=== PATIENT | female | born 1970 | race Caucasian/White ===

== ENCOUNTER 2022-07-11 08:11 | Day surgery (SDC) | payer OTHER ==
[2022-07-10 14:41] LABS: BASOPHILS % (AUTO) 0.4 % (0.0-2.0); EOSINOPHILS # (AUTO) 0.2 K/uL (0-0.4); HEMOGLOBIN 12.2 g/dL (12.0-16.0); LYMPHOCYTES # (AUTO) 2.6 K/uL (2.5-16.5); LYMPHOCYTES % (AUTO) 34.4 % (20.5-51.1); MEAN CORPUSCULAR HEMOGLOBIN 30 pg (27-31); MEAN CORPUSCULAR HGB CONC 34 g/dL (33-37); MEAN CORPUSCULAR VOLUME 88.7 fL (80-94); MONOCYTES # (AUTO) 0.5 K/uL (0.8-1.0); MONOCYTES % (AUTO) 5.9 % (1.7-9.3); NEUTROPHILS # (AUTO) 4.3 K/uL (1.8-7.7); NEUTROPHILS % (AUTO) 56.3 % (42.2-75.2); PLATELET COUNT (AUTO) 257 K/uL (140-450); RED BLOOD CELL COUNT(AUTO) 4.05 MIL/uL (4.20-5.40); WHITE BLOOD COUNT (AUTO) 7.7 K/uL (4.8-10.8)
[2022-07-10 14:53] LABS: ANION GAP 12.8 (8-16); CREATININE 0.7 mg/dL (0.6-1.3); POTASSIUM 3.8 mmol/L (3.5-5.1)
[2022-07-10 15:02] LABS: ALBUMIN 3.9 g/dL (3.4-5.0); ANION GAP 13.4 (8-16); CARBON DIOXIDE 26.3 mmol/L (21-32); CREATININE 0.7 mg/dL (0.6-1.3); POTASSIUM 3.7 mmol/L (3.5-5.1); TOTAL BILIRUBIN 0.2 mg/dL (0.0-1.0)
[~2022-07-11] VITALS: Ht 165.1 cm; Wt 70.3 kg
[2022-07-11] MEDS ORDERED: LIDOCAINE MPF 1% 20 ML ONE (08:19)
[2022-07-11] MEDS ORDERED: BUPIVACAINE-MPF 0.25% 30 ML VIAL INJ ONE (08:19)
[2022-07-11] MEDS ORDERED: PROPOFOL 200 MG/20 ML VIAL IV ONE (08:44)
[2022-07-11] MEDS ORDERED: ONDANSETRON 4 MG/2 ML VIAL ONE (08:44)
[2022-07-11] MEDS ORDERED: DEXAMETHASONE 4 MG/ML VIAL ONE (08:44)
[2022-07-11] MEDS ORDERED: KETOROLAC 30 MG/ML VIAL ONE (08:44)
[2022-07-11] MEDS ORDERED: fentaNYL citrate 0.05 MG/ML VIAL ONE (09:00)
[2022-07-11] MEDS: HYDROmorphone 1 MG/ML AMP IVP PRN ×4 (10:40→11:10)
[2022-07-11] MEDS ORDERED: ONDANSETRON 4 MG/2 ML VIAL IVP PRN (10:40)
[2022-07-11] MEDS ORDERED: HYDROmorphone PFS 2 MG/ML SYR ONE (10:46)
== END 2022-07-11 13:00 | disposition home or self-care (01) ==
LOC: MDS 08:11 → MMU 08:14 → MDS 13:00
PROVIDERS: ATTEND Podiatrist Foot & Ankle Surgery
DX: M21.612 Bunion of left foot (principal); M20.42 Other hammer toe(s) (acquired), left foot; M25.872 Other specified joint disorders, left ankle and foot; Z20.822 Contact with and (suspected) exposure to COVID-19
CPT/HCPCS: 27635; 28285; 28299; 36415; 71045; 73610; 73630; 80053; 81025; 85025; 85730; 87426; C1713; J0690; J1100; J1170; J1885; J2001; J2405; J2704; J3010; J3490; J7060; 80048